=== PATIENT | female | born 1995 ===

== ENCOUNTER 2025-02-08 11:48 | Outpatient (AMB) | payer OTHER, SELFPAY ==
--- NOTE | 2025-02-08 11:49 | A.OFFVIS_ITS ---
Intake Visit Reasons: Dizziness/Migraine Allergies almond Allergy (Unknown, Verified 02/05/25 08:38) Unknown almond oil Allergy (Unknown, Verified 02/05/25 08:38) Unknown Seasonal Allergies Allergy (Unknown, Verified 02/05/25 08:38) Unknown HPI Comments Details: The patient is a 29-year-old female presenting with migraine without aura. She experiences migraine episodes approximately three times a week, characterized by dizziness, seeing different shades, and lightheadedness. Previously, she used Excedrin for management with variable success. The migraines have worsened in frequency and intensity over the years. She denies any current medications and confirmed a recent eye exam was normal. Discussions included future considerations related to migraine treatment. [facility] Medical History (Updated 02/08/25 @ 12:03 by Gonzalo Manriquez MD) Anxiety and depression Allergic rhinitis Chronic migraine without aura Vitamin D deficiency Snoring Asthma Worsening headaches Review of Systems Const Details: - Neurological: Reports dizziness, visual disturbances, lightheadedness. Denies other neurological symptoms. - Ophthalmological: Denies any concerns following a recent eye examination. - General: Denies current medication use. Physical Exam Neuro Other: Mental Status: Alert and oriented to person, place, and time. Normal attention. Normal spontaneous speech, fluency, and comprehension. No obvious issues with mood and memory. Affect is appropriate. Cranial Nerves: CN II: Visual romero full to confrontation, visual acuity intact. CN III, IV, : Pupils equal, round, reactive to light and accommodation. Extraocular movements are normal. CN V: Facial sensation is normal. CN VII: Facial movements symmetrical. CN VIII: Hearing intact to bedside conversation is normal. CN IX, X: Palate elevates symmetrically. CN XI: Shoulder shrug and head turn symmetrical. CN XII: Tongue midline without atrophy or fasciculations. Motor: Bulk and tone normal in all extremities. No significant muscle weakness in arms and legs. No drift. Reflexes: Deep tendon reflexes 2+ and symmetric. Plantar response down-going bilaterally. Coordination: Ogpirz-di-qjva and slei-ro-ilgs testing normal. No dysmetria. Gait and Station: No obvious gait abnormality. No ataxia or instability. Extrapyramidal: Full facial expressions and blinking. No rigidity. Movements are appropriate with no tremor or abnormality. Speech: Normal; no dysarthria or tremor. Assessment & Plan Assessment & Plan (1) Chronic migraine without aura: Code(s): G43.709 - Chronic migraine without aura, not intractable, without status migrainosus Category: Medical Qualifiers: Status migrainosus presence: without status migrainosus Intractability: intractable Qualified Code(s): G43.719 - Chronic migraine without aura, intractable, without status migrainosus Plan Impression: Migraine without aura Recommendations: Topiramate 25 mg at night Sumatriptan 50 mg 1 a day as needed Medications: New topiramate 25 mg orally one at night; 90 tabs 0RF sumatriptan succinate 50 mg orally one a day as needed PRN; do not exceed 4 doses per 24 hrs 10 tabs 5RF migraine headache 30 days Coding Level of Care Code New Pt Level 4 (72017) Diagnoses Intractable chronic migraine without aura and without status migrainosus G43.719 Status migrainosus presence: without status migrainosus Intractability: intractable
--- OUTSIDE RECORDS SUMMARY | 2025-02-08 13:16 | XMS_ITS ---
Author Name [facility] Organization Unknown Problems Problem Status Onset Date Problem Type Date of Resoluti on Source Acute vaginitis active 2023-05-[address] [facility] Other asthma active 2023-05-[address] [facility] [facility] Encounter for test, result negative active 2023-06-03 [facility] Acute upper respiratory infection, unspecified active 2023-05-30 [facility] Acute upper respiratory infection, unspecified active 2023-06-24 [facility]Act [facility] Encounters Encounter Type Encounter Reason Primary Diagnosis Location Date Ambulatory [facility] 05/30/2023 Emergency Dizziness Dizziness [facility] 01/31/2023 Care Team Organization Name Specialty Phone Email Start Date End Da te [facility] Not Disclosed Primary Care 06/02/2023 [facility] PCP,No Primary Care 02/01/2023 07/25/2024 [facility] 01/31/2023 01/31/2023 [facility] NO PCP Primary Care 01/31/2023 01/31/2023 [facility] 023 12/15/2024 [facility] 023 01/01/2023 [facility] Primary Care 03/20/2022
== END 2025-02-08 12:10 | disposition home or self-care (01) ==
LOC: HO.HSM 11:48
PROVIDERS: Visit Provider Psychiatry & Neurology Neurology
DX: G43.719 Chronic migraine without aura, intractable, without status migrainosus (principal)
CPT/HCPCS: 99204

== ENCOUNTER → 2025-02-08 11:48 | Outpatient (BNVA) | payer OTHER, SELFPAY | PROVIDERS: Visit Provider Psychiatry & Neurology Neurology | DX: G43.719 Chronic migraine without aura, intractable, without status migrainosus (principal) | CPT/HCPCS: 99202 ==